=== PATIENT | male | born 1970 | race Caucasian/White ===

== ENCOUNTER 2019-06-11 19:52 | Emergency (ER) | payer BC ==
[2019-06-11 20:11] VITALS: BP 127/84
[2019-06-11] MEDS ORDERED: Tetan/Diph/Pertus SYR(Tdap)* 0.5 ML SYR(BOOSTRIX) use SYR contains LATEX IM ONE (21:10)
[2019-06-11] MEDS ORDERED: DOXYcycline CAP(*) 100 MG PO ONE (21:10)
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
== END 2019-06-11 21:54 | disposition home or self-care (01) ==
LOC: UCCORT 19:52
DX: T24.201A Burn of second degree of unspecified site of right lower limb, except ankle and foot, initial encounter (principal); T31.0 Burns involving less than 10% of body surface; X19.XXXA Contact with other heat and hot substances, initial encounter; Y92.9 Unspecified place or not applicable; L03.115 Cellulitis of right lower limb; F17.210 Nicotine dependence, cigarettes, uncomplicated
CPT/HCPCS: 16020; 87070; 87205; 90715; 99202; A9270-GY; G0463